=== PATIENT | male | born 1950 | race African-American/Black ===

== ENCOUNTER 2018-11-29 16:08 | Emergency (ER) | payer OTHER ==
[~2018-11-29] VITALS: Ht 190.5 cm; Wt 77.1 kg
[2018-11-29 16:50] VITALS: BP 150/99
--- NOTE | 2018-11-29 18:09 | RAD ---
CHEST PA LATERAL CLINICAL INDICATION: ER PATIENT. NON PRODUCTIVE COUGH X3 DAYS. Hx HTN. NO PRIORS COMPARISON: None FINDINGS: Heart is normal in size. Lungs are hyperinflated. Patchy opacities seen in the right infrahilar lung. No pneumothorax or pleural effusion. Visualized bony thorax within normal limits. IMPRESSION: Patchy opacity in the right infrahilar lung suggests infection. Electronically signed by: Raj Solis DO (11/29/2018 6:06 PM) [employer]
[2018-11-29] MEDS ORDERED: ALBU2.5V8 INH (18:17)
[2018-11-29] MEDS ORDERED: GUAI118L3 PO (18:17)
[2018-11-29] MEDS ORDERED: PRED50TA PO (18:17)
[2018-11-29] MEDS ORDERED: AZIT250T PO (18:17)
--- NOTE | 2018-11-29 18:19 | PHYS DOC ---
Past Medical History Past Medical History: Hypertension Additional Past Medical Histor: "something with my stomach" (MARGARITO HAWKMICHAEL Beverly APRN) Past Surgical History: Other Additional Past Surgical Histo: back (TAYLOR HAWKSHYLA Beverly APRN) Alcohol Use: Occasionally Drug Use: None (TAYLOR HAWKSHYLA Beverly APRN) Adult General Chief Complaint Chief Complaint: COUGH HPI HPI Patient is a 68 year old male who presents with a productive cough 5 days. The patient states that he has had some shortness of air as well. He denies fever or body aches. He denies shortness of breath. He has tried over-the- counter medications with little relief. He also has nasal congestion and sinus drainage. (JUAN RAMONRAEANNTAYLORJEROMYSHYLA Beverly APRN) Review of Systems Review of Systems Constitutional: Denies fever or chills [] Eyes: Denies change in visual acuity, redness, or eye pain [] HENT: See history of present illness Respiratory: See history of present illness Cardiovascular: No additional information not addressed in HPI [] GI: Denies abdominal pain, nausea, vomiting, bloody stools or diarrhea [] : Denies dysuria or hematuria [] Musculoskeletal: Denies back pain or joint pain [] Integument: Denies rash or skin lesions [] Neurologic: Denies headache, focal weakness or sensory changes [] Endocrine: Denies polyuria or polydipsia [] All other systems were reviewed and found to be within normal limits, except as documented in this note. (MARGARITO HAWKMICHAEL Beverly APRN) Allergies Allergies Allergies Coded Allergies Type Severity Reaction Last Updated Verified No Known Allergies Allergy Unknown 11/29/18 Yes (FRANCHESKA HARRIS MD) Physical Exam Physical Exam Constitutional: Well developed, well nourished, no acute distress, non-toxic appearance. [] HENT: Normocephalic, atraumatic, bilateral tympanic membranes normal, oropharynx moist, no oral exudates, bilateral nares are erythematous, drainage noted to back of throat Eyes: PERRLA, EOMI, conjunctiva normal, no discharge. [] Neck: Normal range of motion, no tenderness, supple, no stridor. [] Cardiovascular:Heart rate regular rhythm, no murmur [] Lungs & Thorax: Bilateral breath sounds clear to auscultation with a harsh cough noted[] Abdomen: Bowel sounds normal, soft, no tenderness, no masses, no pulsatile masses. [] Skin: Warm, dry, no erythema, no rash. [] Back: No tenderness, no CVA tenderness. [] Extremities: No tenderness, no cyanosis, no clubbing, ROM intact, no edema. [] Neurologic: Alert and oriented X 3, normal motor function, normal sensory function, no focal deficits noted. [] Psychologic: Affect normal, judgement normal, mood normal. [] (JEROMY HAWK APRN) Current Patient Data Vital Signs Vital Signs Date Time Temp Pulse Resp B/P (MAP) Pulse Ox O2 Delivery O2 Flow Rate FiO2 11/29/18 16:50 99.1 91 18 150/99 (116) 97 Room Air 99.1 (FRANCHESKA HARRIS MD) EKG EKG [] (JEROMY HAWK APRN) Radiology/Procedures Radiology/Procedures []Signed PATIENT: JAIR SIMENTAL ACCOUNT: [id number] : 1950 LOCATION: ER AGE: 68 SEX: M EXAM STATUS: REG ER ORD. PHYSICIAN: PERCY LICONA APRN REASON: cough PROCEDURE: CHEST PA & LATERAL CHEST PA LATERAL CLINICAL INDICATION: ER PATIENT. NON PRODUCTIVE COUGH X3 DAYS. Hx HTN. NO PRIORS COMPARISON: None FINDINGS: Heart is normal in size. Lungs are hyperinflated. Patchy opacities seen in the right infrahilar lung. No pneumothorax or pleural effusion. Visualized bony thorax within normal limits. IMPRESSION: Patchy opacity in the right infrahilar lung suggests infection. Electronically signed by: Raj Solis DO (11/29/2018 6:06 PM) [facility] DICTATED and SIGNED BY: RAJ SOLIS DO DATE: 11/29/181804 (JEROMY HAWK APRN) Course & Med Decision Making Course & Med Decision Making Pertinent Labs and Imaging studies reviewed. (See chart for details) [] (JEROMY HAWK APRN) Course & Med Decision Making Staff Physician Addendum: I was working in the ER during the course of this patient's visit. I was available for consultation as needed, but I was not directly involved in the care of this patient. (FRANCHESKA HARRIS MD) Dragon Disclaimer Dragon Disclaimer This electronic medical record was generated, in whole or in part, using a voice recognition dictation system. (JEROMY HAWK APRN) Departure Departure Impression: Primary Impression: Pneumonia Disposition: 01 HOME, SELF-CARE Condition: STABLE Referrals: CARLOS BATISTA (PCP) Patient Instructions: Pneumonia, Adult Additional Instructions: Take the medications as directed. Follow-up with your primary care provider in 4 days if not improving or return to the emergency department if worsening. Scripts Guaifenesin/D-Methorphan Hb/Pe (ROBITUSSIN COUGH-COLD CF LIQ) 118 Ml Liquid 118 ML PO BID for cough, #120 LIQUID Prov: JEROMY HAWK APRN 11/29/18 Prednisone (PREDNISONE) 50 Mg Tablet 1 TAB PO DAILY for pneumonia, #5 TAB Prov: JEROMY HAWK APRN 11/29/18 Albuterol Sulfate (Proair Hfa) 8.5 Gm Hfa.aer.ad 1 PUFF INH PRN Q6HRS PRN for SHORTNESS OF BREATH, #1 INHALER Prov: JEROMY HAWK APRN 11/29/18 Azithromycin (ZITHROMAX) 250 Mg Tablet 1 PKG PO UD for pneumonia, #1 PKG Prov: JEROMY HAWK APRN 11/29/18 JEROMY HAWK APRN Nov 29, 2018 18:19 FRANCHESKA HARRIS MD Nov 29, 2018 21:51
== END 2018-11-29 18:30 | disposition home or self-care (01) ==
LOC: ER 16:08
DX: J18.9 Pneumonia, unspecified organism (principal); I10 Essential (primary) hypertension
CPT/HCPCS: 71046; 99283

== ENCOUNTER 2020-06-30 15:05 | Emergency (ER) | payer MEDICARE, OTHER ==
[~2020-06-30] VITALS: Ht 190.5 cm; Wt 77.2 kg
[~2020-06-30 15:05] MED LIST: ALBU2.5V8 INH; AZIT250T PO; GUAI118L3 PO; PRED50TA PO
--- NOTE | 2020-06-30 15:29 | PHYS DOC ---
Past Medical History Past Medical History: Hypertension Additional Past Medical Histor: "something with my stomach" Past Surgical History: Other Additional Past Surgical Histo: back Smoking Status: Never Smoker Alcohol Use: Occasionally Drug Use: None General Adult EDM: Chief Complaint: ABDOMINAL PAIN HPI: HPI: The history was obtained from the patient. Patient is a 69-year-old male with no reported PMH who presents with a chief complaint of abdominal pain. Patient states he is a constant abdominal pain for the past 4 days. He states the pain started suddenly. He states pain is aching and burning in nature. He has tried Pepto-Bismol with no relief. He states that nothing seems to exacerbate his symptoms. He denies nausea or vomiting. Denies urinary symptoms. Denies changes to stool caliber or consistency. States he has a history of colonoscopy that was normal to his knowledge. States he has a history of stomach issue but does not know what and cannot elaborate on this. Denies any daily alcohol usage. Denies tobacco or drug use. Denies any chest pain or shortness of breath. Review of Systems: Review of Systems: Constitutional: Denies fever or chills. [] Eyes: Denies change in visual acuity. [] HENT: Denies nasal congestion or sore throat. [] Respiratory: Denies cough or shortness of breath. [] Cardiovascular: Denies chest pain or edema. [] GI: Denies abdominal pain, nausea, vomiting, bloody stools or diarrhea. [] : Denies dysuria. [] Musculoskeletal: Denies back pain or joint pain. [] Integument: Denies rash. [] Neurologic: Denies headache, focal weakness or sensory changes. [] Endocrine: Denies polyuria or polydipsia. [] Lymphatic: Denies swollen glands. [] Psychiatric: Denies depression or anxiety. [] Heart Score: Risk Factors: Risk Factors: DM, Current or recent (<one month) smoker, HTN, HLP, family history of CAD, obesity. Risk Scores: Score 0 - 3: 2.5% MACE over next 6 weeks - Discharge Home Score 4 - 6: 20.3% MACE over next 6 weeks - Admit for Clinical Observation Score 7 - 10: 72.7% MACE over next 6 weeks - Early Invasive Strategies Allergies: Allergies: Allergies Coded Allergies Type Severity Reaction Last Updated Verified No Known Allergies Allergy Unknown 11/29/18 Yes Physical Exam: PE: Constitutional: Well developed, well nourished, no acute distress, non-toxic appearance. [] HENT: Normocephalic, atraumatic, bilateral external ears normal, oropharynx mo ist, no oral exudates, nose normal. [] Eyes: PERRLA, EOMI, conjunctiva normal, no discharge. [] Neck: Normal range of motion, no tenderness, supple, no stridor. [] Cardiovascular:Heart rate regular rhythm, no murmur [] Lungs & Thorax: Bilateral breath sounds clear to auscultation [] Abdomen: Bowel sounds normal, soft, no tenderness, no masses, no pulsatile masses. [] Skin: Warm, dry, no erythema, no rash. [] Back: No tenderness, no CVA tenderness. [] Extremities: No tenderness, no cyanosis, no clubbing, ROM intact, no edema. [] Neurologic: Alert and oriented X 3, normal motor function, normal sensory function, no focal deficits noted. [] Psychologic: Affect normal, judgement normal, mood normal. [] Current Patient Data: Labs: Laboratory Tests Test 06/30/20 15:30 White Blood Count 4.2 x10^3/uL Red Blood Count 4.63 x10^6/uL Hemoglobin 13.9 g/dL Hematocrit 41.5 % Mean Corpuscular Volume 90 fL Mean Corpuscular Hemoglobin 30 pg Mean Corpuscular Hemoglobin Concent 34 g/dL Red Cell Distribution Width 13.2 % Platelet Count 111 x10^3/uL Neutrophils (%) (Auto) 42 % Lymphocytes (%) (Auto) 37 % Monocytes (%) (Auto) 20 % Eosinophils (%) (Auto) 0 % Basophils (%) (Auto) 1 % Neutrophils # (Auto) 1.8 x10^3/uL Lymphocytes # (Auto) 1.6 x10^3/uL Monocytes # (Auto) 0.8 x10^3/uL Eosinophils # (Auto) 0.0 x10^3/uL Basophils # (Auto) 0.0 x10^3/uL Platelet Estimate Pending Sodium Level 133 mmol/L Potassium Level 3.8 mmol/L Chloride Level 99 mmol/L Carbon Dioxide Level 28 mmol/L Anion Gap 6 Blood Urea Nitrogen 11 mg/dL Creatinine 1.4 mg/dL Estimated GFR (Cockcroft-Gault) 60.6 BUN/Creatinine Ratio 8 Glucose Level 137 mg/dL Calcium Level 8.5 mg/dL Total Bilirubin 0.9 mg/dL Aspartate Amino Transf (AST/SGOT) 18 U/L Alanine Aminotransferase (ALT/SGPT) 14 U/L Alkaline Phosphatase 47 U/L Total Protein 7.6 g/dL Albumin 3.6 g/dL Albumin/Globulin Ratio 0.9 Lipase 115 U/L Current Medications Medications (Trade) Dose Ordered Sig/Catia Route PRN Reason Start Time Stop Time Status Last Admin Dose Admin Acetaminophen (Tylenol) 1,000 mg 1X ONCE PO 06/30/20 16:00 06/30/20 16:01 DC 06/30/20 16:15 Iohexol (Omnipaque 300 Mg/ml) 75 ml 1X ONCE IV 06/30/20 16:30 06/30/20 16:31 DC 06/30/20 16:40 Sodium Chloride 1,000 ml @ 1,000 mls/hr 1X ONCE IV 06/30/20 16:30 06/30/20 17:29 06/30/20 16:41 Info (CONTRAST GIVEN -- Rx MONITORING) 1 each PRN DAILY PRN MC SEE COMMENTS 06/30/20 16:30 07/02/20 16:29 Morphine Sulfate (Morphine Sulfate) 4 mg 1X ONCE IV 06/30/20 16:30 06/30/20 16:31 DC 06/30/20 16:42 Famotidine (Pepcid Vial) 20 mg 1X ONCE IVP 06/30/20 16:30 06/30/20 16:31 DC 06/30/20 16:41 Pantoprazole Sodium (PROTONIX VIAL for IV PUSH) 40 mg 1X ONCE IVP 06/30/20 16:30 06/30/20 16:31 DC 06/30/20 16:41 Vital Signs: Vital Signs Date Time Temp Pulse Resp B/P (MAP) Pulse Ox O2 Delivery O2 Flow Rate FiO2 06/30/20 16:42 18 94 Room Air 06/30/20 15:20 102.9 79 19 141/89 (106) 93 Room Air 102.9 EKG: EKG: EKG consistent with normal sinus rhythm. Ventricular rate of 77 bpm. [place] noted to be right. Flipped T wave in lead III. As well as flipped T wave in lead V3. No acute ischemic changes appreciated. [] Radiology/Procedures: Radiology/Procedures: [facility] [address] [place] [address] IMAGING REPORT Signed PATIENT: JAIR SIMENTAL ACCOUNT: [id number] : 1950 LOCATION: ER AGE: 69 SEX: M EXAM STATUS: REG ER ORD. PHYSICIAN: BRADLY CAMARA DO REASON: abdominal pain PROCEDURE: CT ABD PELV W/ IV CONTRST ONLY Exam: CT of abdomen and pelvis with contrast INDICATION: Abdominal pain TECHNIQUE: Sequential axial images through the abdomen and pelvis obtained following the administration of 75 mL of Omni 300 IV contrast. Sagittal and coronal reformatted images were reconstructed from the axial data and reviewed. Comparisons: None FINDINGS: Heart size is normal. No pericardial effusion. Strandy opacities at dependent portion the lungs. 4 mm nodule at the right lower lobe series 2 image 5. No pleural effusion. Liver, spleen, pancreas, gallbladder and adrenals are unremarkable. Kidneys demonstrate symmetric enhancement. No perinephric inflammation or hydronephrosis. 2 simple cyst noted in the left kidney. No ureteral calculi are identified. Bladder is partially distended and appears thin-walled. Prostate is not enlarged. Large and small bowel are unremarkable. Appendix is normal. No free intra-abdominal air or fluid. No obstruction. Abdominal aorta has a normal course and caliber. Abdominal vasculature is patent. No enlarged intra-abdominal lymph nodes are identified. No suspicious osseous lesions or acute fractures. IMPRESSION: No acute process identified within the abdomen or pelvis. Exposure: One or more of the following in the visualized dose reduction techniques were utilized for this examination: 1. Automated exposure control 2. Adjustment of the MA and/or KV according to patient size 3. Use of iterative of reconstructive technique Electronically signed by: Kush Roldan MD (06/30/2020 4:51 PM) [id number] DICTATED and SIGNED BY: KUSH ROLDAN MD DATE: 06/30/20 165 [] Course & Med Decision Making: Course & Med Decision Making Pertinent Labs and Imaging studies reviewed. (See chart for details) [] Patient is a well-appearing 69-year-old male who presents with chief complaint of abdominal discomfort over the past 4 days associated with loose stool. He tells me he was tested for COVID yesterday by his primary care physician. Distal vital signs notable for mild temperature. Otherwise unremarkable. Basic labs were obtained were grossly unremarkable. CT imaging reveals no acute surgical abnormality. He was notified of the incidental finding of lung nodules and instructed to follow-up with his primary care physician. Urinalysis reveals no evidence of infection. Repeat examination his abdomen remains benign. He has tolerated p.o. His vital signs remained stable. I do feel he is overall appropriate for discharge home with close outpatient monitoring. I discussed the possibility of hospitalization for close monitoring however the patient is requesting discharge home and overall I do feel this is reasonable. Utilizing shared decision making patient will be discharged home. He was instructed to quarantine until results of COVID testing return. Return precautions were discussed and understood. Patient is agreeable to this plan will be discharged home with close follow-up. Dragon Disclaimer: Dragon Disclaimer: This electronic medical record was generated, in whole or in part, using a voice recognition dictation system. Departure Departure Impression: Primary Impression: Abdominal pain Qualified Codes: R10.84 - Generalized abdominal pain Additional Impression: Lung nodule Disposition: HOME, SELF-CARE Condition: STABLE Referrals: CARLOS BATISTA (PCP) Patient Instructions: Abdominal Pain Additional Instructions: Discharge Abdominal Pain Re-Check Precautions: I'm unsure of the specific cause of your abdominal pain. However, at this point I feel that you are low risk for a life threatening emergency and that discharge from the Emergency Department is safe. There is a very small possibility that you are just too early in your clinical course for our physical exam/labs/imaging to ascertain whether or not you have an emergent condition that could potentially cause permanent disability or be life threatening. As such, it is very important that you follow up with your primary doctor or return to the Emergency Department in 12-24 hours for re-assessment and further evaluation if clinically indicated. If you develop new or worsening symptoms then you should return to the Emergency Department immediately. Home Care Instructions: Abdominal Pain Many things may cause abdominal pain. Your ER visit might not show the exact reason you are having pain. In some cases, additional time is needed to determine if the cause is serious. Therefore you may be told to go home and watch for any changes or worsening in your condition. Before that, we may not know if you need more testing, or if hospitalization or surgery is necessary. If its not something serious, the pain may go away without treatment or get better with simple things like avoiding certain foods or medications. In the ER, your doctor asks you questions, examines you and in some cases, may order tests. These help doctors decide if the pain is from something serious. Tests are not always done and may not provide a definite answer. There can still be a problem, even with normal test results. Abdominal pain may be caused by something serious (like appendicitis), which is not obvious right away. Because of this, another checkup is needed to make sure you are OK. It is VERY IMPORTANT to follow up for a repeat exam, especially if you have any symptoms that are not going away or are getting worse. We recommend that you RETURN TO THE EMERGENCY ROOM IN 8-12 HOURS to be rechecked. If you cannot, you may follow up with your primary care doctor or clinic. It is important that you follow all of the instructions below. RETURN TO THE EMERGENCY ROOM IMMEDIATELY IF: The pain does not go away or gets worse. You have a fever. You keep throwing up and cannot keep anything down. You pass bloody or black stools. You develop new symptoms. HOME CARE INSTRUCTIONS Come back to the ER (or see your doctor) in 8-12 hours. DO NOT take laxatives unless directed by your doctor. Avoid the use of alcohol Take pain medicine only as directed by your doctor. Only take [id number] or prescription medicine as directed by your doctor. Try a clear liquid diet (broth, tea, jello, water) for the next 12-24 hours. Slowly move to a bland diet as tolerated. Do not eat greasy, fatty or spicy foods. Once you start getting better, go back to a normal, healthy diet, slowly over a few days. DISCHARGE PT INSTRUCTIONS: YOU HAVE BEEN EVALUATED FOR ABDOMINAL PAIN. HOWEVER, WE ARE UNABLE TO PROVIDE A DEFINITE CAUSE OF YOUR SYMPTOMS. EVEN THOUGH YOUR TESTS MAY HAVE BEEN NORMAL, YOU STILL COULD HAVE A SERIOUS CAUSE FOR YOUR ABDOMINAL PAIN, INCLUDING APPENDICITIS. THE BEST TEST TO DETERMINE IF YOU HAVE A SERIOUS CAUSE IS RE-EXAMINATION OVER TIME. WE USED TO ADMIT PATIENTS TO THE HOSPITAL FOR THIS, BUT CAN NOW ALLOW YOU TO GO HOME, & RETURN TO OUR ER THE NEXT DAY FOR RE- EXAMINATION. THUS, WE WOULD LIKE YOU TO RETURN TO OUR ER TOMORROW FOR YOUR RE- EVALUATION. (IF YOUR SYMPTOMS HAVE GONE AWAY, THEN YOU DO NOT NEED TO RETURN.) IF YOUR SYMPTOMS GET WORSE BETWEEN NOW & THEN, YOU SHOULD RETURN IMMEDIATELY & NOT WAIT UNTIL TOMORROW. SYMPTOMS TO LOOK FOR WORSENING PAIN, HIGH FEVER, PERSISTENT VOMITING [NOT CONTROLLED BY MEDICINE], AND/OR OVERALL WORSENING OF YOUR CONDITION. You have been tested for or diagnosed with COVID-19. It is an infection caused by a new type of coronavirus. COVID-19 will cause cold-like or mild flu symptoms in most. It can cause more severe symptoms like problems breathing in some. There is no treatment for COVID-19. The body will clear the infection over time. Self-care will help to ease discomfort. Steps to Take: Self-Care Rest as needed. Healthy habits may help you feel better. Steps include: Choose healthy foods including fruits and vegetables. Drink water throughout the day. Get plenty of sleep each night. If you smoke, try to quit. It may ease breathing. Avoid alcohol. Keep Others Healthy The virus can spread to others. Droplets are released every time you sneeze or cough. The droplets can get into the mouth, nose, or eyes of people near you and lead to infection. To lower the chances of spreading COVID-19 to others: Stay at home until your doctor has said it is safe to leave. If you tested positive this will mean staying isolated until both of the following are true: At least 7 days have passed since the start of illness. You are free of fever for at least 72 hours without the use of medicine. During this time: - Avoid public areas, events, or transportation. Do not return to work or school until your doctor has said it is safe to do so. - Call ahead if you need to go to a medical center. Let them know you may have COVID-19. It will help them guide you where to go. They may also ask you to wear a facemask when you come to the office. - If you call for emergency medical services, let them know you may have COVID- 19. While at home: - Try to avoid close contact with others. Stay about 6 feet away. - If possible, spend most of your time in a separate room from others. - Use a face mask if you will be in close contact with others such as sharing a room or vehicle. - Have someone wipe down common surfaces in the home. Use household data software engineer every day on areas like doorknobs, counters, or sinks. - Cough or sneeze into a tissue. Throw the tissue away right after use. If a tissue is not available, cough or sneeze into your elbow. - Wash your hands often. Wash them after sneezing or coughing. Use soap and water and wash for at least 20 seconds. Alcohol based hand chicken cleaner can be used if soap and water is not available. - Do not prepare food for others. Avoid sharing personal items like forks, spoons, or toothbrushes. - Avoid close contact with pets while you are sick. There is no evidence of the virus passing to pets. This is a safety step until more is known about this virus. Isolation can be frustrating. Social interaction can help. Keep in touch with friends and family through phone and tech options. You can still interact with others in your home, just keep a safe distance of about 6 feet. Follow-up: Your doctors office will check in with you to see if there are any changes in your health. You may be asked to keep track of symptoms to share with them. They will also let you know when you are clear to be in public again. Problems to Look Out For: Contact your doctor if your recovery is not going as you expect. Get emergency care if you have problems such as: - Trouble breathing - Nonstop chest pain or pressure - Changes in awareness, confusion, or problems waking - Lips or face have bluish color - Worsening of symptoms If you think you have an emergency, call for emergency medical services right away. As taken from [facility] Health Scripts Ondansetron Hcl (ZOFRAN) 4 Mg Tablet 4 MG PO PRN TID PRN for NAUSEA, #15 nausea/vomiting Prov: BRADLY CAMARA DO 06/30/20 Famotidine (PEPCID) 20 Mg Tablet 20 MG PO BID for 7 Days, #14 TAB Prov: BRADLY CAMARA DO 06/30/20 Dicyclomine Hcl (DICYCLOMINE HCL) 20 Mg Tablet 1 TAB PO QID for 7 Days, #28 TAB 1 Refill Prov: BRADLY CAMARA DO 06/30/20 Justicifation of Admission Dx: Justifications for Admission: Justification of Admission Dx: N/A BRADLY CAMARA DO Jun 30, 2020 15:29
[2020-06-30] MEDS ORDERED: ACETAMINOPHEN 500 MG TABLET PO ONE (16:00)
[2020-06-30 16:05] LABS: BASO % 1 % (0-3); EOS % 0 % (0-3); HEMATOCRIT 41.5 % (39.0-53.0); HEMOGLOBIN 13.9 g/dL (13.0-17.5); LYMPH # 1.6 x10^3/uL (1.0-4.8); LYMPH % 37 % (24-48); MEAN CORPUSCULAR HEMOGLOBIN 30 pg (25-35); MEAN CORPUSCULAR HGB CONC 34 g/dL (31-37); MEAN CORPUSCULAR VOLUME 90 fL (79-100); MONO # 0.8 x10^3/uL (0.0-1.1); MONO % 20 % (0-9); NEUT # 1.8 x10^3/uL (1.8-7.7); NEUT % 42 % (31-73); PLATELET COUNT 111 x10^3/uL (140-400); RED BLOOD COUNT 4.63 x10^6/uL (4.30-5.70); RED CELL DISTRIBUTION WIDTH 13.2 % (11.5-14.5); WHITE BLOOD COUNT 4.2 x10^3/uL (4.0-11.0)
[2020-06-30 16:11] LABS: CALCIUM 8.5 mg/dL (8.5-10.1); CREATININE 1.4 mg/dL (0.7-1.3); GFR 60.6; POTASSIUM 3.8 mmol/L (3.5-5.1)
[2020-06-30 16:17] LABS: ALBUMIN 3.6 g/dL (3.4-5.0); ALBUMIN/GLOBULIN RATIO 0.9 (1.0-1.7); TOTAL BILIRUBIN 0.9 mg/dL (0.2-1.0); TOTAL PROTEIN 7.6 g/dL (6.4-8.2)
[2020-06-30] MEDS ORDERED: FAMOTIDINE 20 MG/2 ML VIAL IVP ONE (16:30)
[2020-06-30] MEDS ORDERED: IV NORMAL SALINE 1000ML BAG 1,000 ML IV ONE (16:30)
[2020-06-30] MEDS ORDERED: CONTRAST GIVEN. MC PRN (16:30)
[2020-06-30] MEDS ORDERED: IOHEXOL 300 MG/ML 100ML VIAL. IV ONE (16:30)
[2020-06-30] MEDS ORDERED: PANTOPRAZOLE IV PUSH 40 MG VIAL. IVP ONE (16:30)
[2020-06-30] MEDS ORDERED: MORPHINE SULFATE 4 MG/ML VIAL. IV ONE (16:30)
--- NOTE | 2020-06-30 16:54 | RAD ---
Exam: CT of abdomen and pelvis with contrast INDICATION: Abdominal pain TECHNIQUE: Sequential axial images through the abdomen and pelvis obtained following the administration of 75 mL of Omni 300 IV contrast. Sagittal and coronal reformatted images were reconstructed from the axial data and reviewed. Comparisons: None FINDINGS: Heart size is normal. No pericardial effusion. Strandy opacities at dependent portion the lungs. 4 mm nodule at the right lower lobe series 2 image 5. No pleural effusion. Liver, spleen, pancreas, gallbladder and adrenals are unremarkable. Kidneys demonstrate symmetric enhancement. No perinephric inflammation or hydronephrosis. 2 simple cyst noted in the left kidney. No ureteral calculi are identified. Bladder is partially distended and appears thin-walled. Prostate is not enlarged. Large and small bowel are unremarkable. Appendix is normal. No free intra-abdominal air or fluid. No obstruction. Abdominal aorta has a normal course and caliber. Abdominal vasculature is patent. No enlarged intra-abdominal lymph nodes are identified. No suspicious osseous lesions or acute fractures. IMPRESSION: No acute process identified within the abdomen or pelvis. Exposure: One or more of the following in the visualized dose reduction techniques were utilized for this examination: 1. Automated exposure control 2. Adjustment of the MA and/or KV according to patient size 3. Use of iterative of reconstructive technique Electronically signed by: Kush Horan MD (06/30/2020 4:51 PM) [id number]
[2020-06-30 17:19] LABS: % BANDS 4 % (0-9); % LYMPHS 38 % (24-48); % METAS 1 % (0-0); % MONOS 21 % (0-10); % SEGS 36 % (35-66)
[2020-06-30 17:20] LABS: PLT ESTIMATE DECREASED (ADEQUATE)
[2020-06-30] MEDS ORDERED: DICY20TA3 PO (17:23)
[2020-06-30] MEDS ORDERED: FAMO-63 PO (17:23)
[2020-06-30] MEDS ORDERED: ONDA4TAB7 PO (17:23)
[2020-06-30 17:28] LABS: BILIRUBIN,URINE NEGATIVE (NEG); CLARITY,URINE CLEAR; COLOR,URINE YELLOW; NITRITE,URINE NEGATIVE (NEG); PH,URINE 7.5 (<5.0-8.0); PROTEIN,URINE NEGATIVE (NEG-TRACE)
[2020-06-30 17:31] LABS: SQUAMOUS EPITHELIAL CELL,UR OCC /LPF
[2020-06-30 17:32] LABS: BACTERIA,URINE 0 /HPF (0-FEW); RBC,URINE 0 /HPF (0-2); WBC,URINE 0 /HPF (0-4)
--- NOTE | 2020-06-30 17:51 | RAD ---
Chest AP portable 06/30/2020. Reason for exam: Epigastric pain. Comparison is made with a study of 11/29/2018. No infiltrate or effusion is seen. Heart size and pulmonary vascularity appear normal. No free air is visible beneath the diaphragm. IMPRESSION: No acute cardiopulmonary disease. Electronically signed by: Rigo Lilly Jr., MD (06/30/2020 5:48 PM) [id number]
[2020-06-30 17:59] VITALS: BP 128/77
--- NOTE | 2020-07-02 10:33 | EKG ---
[facility] [address] [place] [address] Test Date: 2020-06-30 Test Time: 15:35:59 Pat Name: JAIR SIMENTAL Department: Room: Gender: M Club Former: : 1950 Requested By: BRADLY CAMARA Order Number: [id number] Reading MD: Measurements Intervals Nikolai Rate: 77 P: 42 IN: 190 QRS: 98 QRSD: 86 T: 28 QT: 350 QTc: 398 Interpretive Statements SINUS RHYTHM LEFT ATRIAL ABNORMALITY R-S TRANSITION ZONE IN V LEADS DISPLACED TO THE LEFT ABNORMAL ECG RI6.02 No previous ECG available for comparison
== END 2020-06-30 18:25 | disposition home or self-care (01) ==
LOC: ER 15:05
DX: R10.84 Generalized abdominal pain (principal); R91.1 Solitary pulmonary nodule; R20.8 Other disturbances of skin sensation; R19.7 Diarrhea, unspecified; I10 Essential (primary) hypertension; Z98.890 Other specified postprocedural states
CPT/HCPCS: 36415; 71045; 74177; 80053; 81001; 83690; 85007; 85025; 96361; 96374; 96375; 99285; C9113; J2270; J3490; J7030; Q9967; 93005

== ENCOUNTER 2020-09-24 12:49 | Emergency (ER) | payer MEDICARE ==
[~2020-09-24] VITALS: Ht 190.5 cm; Wt 75.0 kg
[~2020-09-24 12:49] MED LIST changes: +AMLO5TAB4 PO; +ASPI-630 PO; +ATOR20TA58 PO; +DEXA4TAB63 PO; +DICY20TA3 PO; +FAMO-63 PO; +LINE600T12 PO; +LISI2.5T PO; +ONDA4TAB7 PO
[2020-09-24 13:00] VITALS: BP 129/90
[2020-09-24] MEDS ORDERED: KETOROLAC 30 MG/ML VIAL. IM ONE (13:45)
[2020-09-24 14:02] LABS: BILIRUBIN,URINE NEGATIVE (NEG); CLARITY,URINE CLEAR; COLOR,URINE YELLOW; NITRITE,URINE NEGATIVE (NEG); PROTEIN,URINE NEGATIVE (NEG-TRACE)
[2020-09-24 14:13] LABS: BACTERIA,URINE 0 /HPF (0-FEW); WBC,URINE 0 /HPF (0-4)
--- NOTE | 2020-09-24 14:44 | RAD ---
EXAMINATION: CT LUMBAR SPINE WO, 09/24/2020 1:50 PM CLINICAL INDICATION: Acute pain COMPARISON: CT abdomen pelvis 06/30/2020 TECHNIQUE: Helical CT imaging performed of the lumbar spine without the use of intravenous contrast. Sagittal and coronal reformats were obtained. One or more of the following individualized dose reduction techniques were utilized for this examinat ion: 1. Automated exposure control 2. Adjustment of the mA and/or kV according to patient size 3. Use of iterative reconstruction technique. FINDINGS: There is sacralization of L5 with a reminder disc at L5-S1. There is no acute fracture. 3 m m anterolisthesis of L2 on L3 is unchanged. There is mild/moderate space narrowing at L2-L3 and mild disc space narrowing at T12-L1 and L1-L2. There is a Schmorl's node in the superior plate of bowel to . There is severe facet arthrosis throughout the lumbar spine, greatest at L4-L5 and L5-S1. There is fusion of the facets at L5-S1. There is foraminal narrowing at T12-L1, L1-L2, and L2-L3 bilaterally. There is a broad-based disc bulge with severe canal narrowing at L2-L3. Mild calcified atherosclerosis in the aorta. IMPRESSION: 1. No acute osseous abnormality. 2. Transitional anatomy at the lumbosacral junction. 3. Mild degenerative disc disease, greatest at L2-L3 where there is grade 1 anterolisthesis, a disc b ulge, and severe canal narrowing. There is foraminal narrowing in the upper lumbar spine. 4. Severe facet arthrosis, greatest in the lower lumbar spine. Electronically signed by: Laura Mercedes MD (09/24/2020 2:41 PM) [id number]
[2020-09-24] MEDS ORDERED: MELO7.5T29 PO (15:42)
--- NOTE | 2020-09-24 15:42 | PHYS DOC ---
Past Medical History Past Medical History: Hypertension Additional Past Medical Histor: "something with my stomach" Past Surgical History: Other Additional Past Surgical Histo: back Smoking Status: Never Smoker Alcohol Use: Occasionally Drug Use: None General Adult EDM: Chief Complaint: BACK PAIN - NO INJURY HPI: HPI: Patient is a 70 year old male presents to the emergency department complaining of nontraumatic low back pain that started this past Thursday before he went to bed. Patient states that he woke up with the same pain and was concerned that maybe he needed to be seen at his doctor's office. Patient reports a 10/10 pain on a 1-10 pain scale denies numbness or tingling down his extremities denies any loss of bowel or bladder, denies any extremity swelling. Patient denies any urinary problems, denies any burning with urination, denies any penile discharge. Patient states he went to see his doctor today and was told that he could not get in until October 03 and they recommended to him that he come straight to the emergency department for an evaluation. Patient denies any recent fever or chills, shortness of breath, chest pain, nasal congestion, or rashes of his skin. Review of Systems: Review of Systems: 14 body systems of review of systems have been reviewed. See HPI for pertinent positives and negative responses, otherwise all other systems are negative, nonpertinent or noncontributory. Heart Score: Risk Factors: Risk Factors: DM, Current or recent (<one month) smoker, HTN, HLP, family history of CAD, obesity. Risk Scores: Score 0 - 3: 2.5% MACE over next 6 weeks - Discharge Home Score 4 - 6: 20.3% MACE over next 6 weeks - Admit for Clinical Observation Score 7 - 10: 72.7% MACE over next 6 weeks - Early Invasive Strategies Current Medications: Current Medications Medications (Trade) Dose Ordered Sig/[facility] Start Time Stop Time Status Last Admin Dose Admin Ketorolac Tromethamine (Toradol 30mg Vial) 30 mg 1X ONCE 09/24/20 13:45 09/24/20 13:48 DC 09/24/20 14:06 30 MG Allergies: Allergies: Allergies Coded Allergies Type Severity Reaction Last Updated Verified No Known Allergies Allergy Unknown 11/29/18 Yes Physical Exam: PE: Constitutional: Well developed, well nourished, no acute distress, non-toxic appearance. [] HENT: Normocephalic, atraumatic, bilateral external ears normal, oropharynx moist, no oral exudates, nose normal. [] Eyes: PERRLA, EOMI, conjunctiva normal, no discharge. [] Neck: Normal range of motion, no tenderness, supple, no stridor. [] Cardiovascular:Heart rate regular rhythm, no murmur [] Lungs & Thorax: Bilateral breath sounds clear to auscultation [] Abdomen: Bowel sounds normal, soft, no tenderness, no masses, no pulsatile masses. [] Skin: Warm, dry, no erythema, no rash. [] Back: No CVA tenderness, left and right lumbar area pain to palpation without radiation down either lower extremity, no midline spinal tenderness pain. No bony crepitus noted, no subcu air noted, no bruising and no ecchymotic areas or erythema noted of the lumbar area or adjacent surface areas. Extremities: No tenderness, no cyanosis, no clubbing, ROM intact, no edema. [] Neurologic: Alert and oriented X 3, normal motor function, normal sensory function, no focal deficits noted. [] Psychologic: Affect normal, judgement normal, mood normal. [] Current Patient Data: Labs: Laboratory Tests Test 09/24/20 13:00 Urine Collection Type Unknown Urine Color Yellow Urine Clarity Clear Urine pH 7.0 (<5.0-8.0) Urine Specific [place] 1.010 (1.000-1.030) Urine Protein Negative mg/dL (NEG-TRACE) Urine Glucose (UA) Negative mg/dL (NEG) Urine Ketones (Stick) Negative mg/dL (NEG) Urine Blood Negative (NEG) Urine Nitrite Negative (NEG) Urine Bilirubin Negative (NEG) Urine Urobilinogen Dipstick 1.0 mg/dL (0.2 mg/dL) Urine Leukocyte Esterase Negative (NEG) Urine RBC 1-2 /HPF (0-2) Urine WBC 0 /HPF (0-4) Urine Bacteria 0 /HPF (0-FEW) Urine Mucus Slight /LPF Vital Signs: Vital Signs Date Time Temp Pulse Resp B/P (MAP) Pulse Ox O2 Delivery O2 Flow Rate FiO2 09/24/20 13:00 98.6 77 18 129/90 (103) 97 Room Air 98.6 EKG: EKG: [] Radiology/Procedures: Radiology/Procedures: SEX: M EXAM STATUS: REG ER ORD. PHYSICIAN: JAIR STONE APRN REASON: ACUTE PAIN PROCEDURE: CT LUMBAR SPINE WO CONTRAST EXAMINATION: CT LUMBAR SPINE WO, 09/24/2020 1:50 PM CLINICAL INDICATION: Acute pain COMPARISON: CT abdomen pelvis 06/30/2020 TECHNIQUE: Helical CT imaging performed of the lumbar spine without the use of intravenous contrast. Sagittal and coronal reformats were obtained. One or more of the following individualized dose reduction techniques were utilized for this examination: 1. Automated exposure control 2. Adjustment of the mA and/or kV according to patient size 3. Use of iterative reconstruction technique. FINDINGS: There is sacralization of L5 with a reminder disc at L5-S1. There is no acute fracture. 3 mm anterolisthesis of L2 on L3 is unchanged. There is mild/moderate space narrowing at L2-L3 and mild disc space narrowing at T12-L1 and L1-L2. There is a Schmorl's node in the superior plate of bowel to. There is severe facet arthrosis throughout the lumbar spine, greatest at L4-L5 and L5- S1. There is fusion of the facets at L5-S1. There is foraminal narrowing at T12- L1, L1-L2, and L2-L3 bilaterally. There is a broad-based disc bulge with severe canal narrowing at L2-L3. Mild calcified atherosclerosis in the aorta. IMPRESSION: 1. No acute osseous abnormality. 2. Transitional anatomy at the lumbosacral junction. 3. Mild degenerative disc disease, greatest at L2-L3 where there is grade 1 anterolisthesis, a disc bulge, and severe canal narrowing. There is foraminal narrowing in the upper lumbar spine. 4. Severe facet arthrosis, greatest in the lower lumbar spine. Electronically signed by: Laura Mercedes MD (09/24/2020 2:41 PM) [id number] DICTATED and SIGNED BY: LAURA MERCEDES MD DATE: 09/24/20 [id number] 0 Course & Med Decision Making: Course & Med Decision Making Pertinent Labs and Imaging studies reviewed. (See chart for details) 70-year-old male vital signs stable presented to the emergency department after his primary care physician could not see him today for low back pain. Patient did not have saddle anesthesia, no midline tenderness, exam was consistent with lumbar go diagnosis however related to patient's age and history of surgery in the past a CT of the LS spine was performed. Read as arthritic changes per house radiologist interpretation. Discussed with patient CT findings, patient states that he feels much better since his injection of 30 mg IM Toradol. Discussed with patient will start on meloxicam 7.5 mg p.o. daily and to keep his appointment on 10/03/2020 with his primary care physician to let him know that I have started him on meloxicam. Patient gave verbal understanding of discharge instructions, return to ER co ncerns, patient had no further questions or concerns, patient discharged home without incident Dragon Disclaimer: Dragon Disclaimer: This electronic medical record was generated, in whole or in part, using a voice recognition dictation system. Departure Departure Impression: Primary Impression: Lumbago Qualified Codes: M54.5 - Low back pain Disposition: 01 DC HOME SELF CARE/HOMELESS Condition: IMPROVED Referrals: CARLOS BATISTA (PCP) Patient Instructions: Back Pain, Adult Additional Instructions: I have started you on a new medication called meloxicam for your back pain that I believe is caused from arthritic changes. Please keep your appointment for October 03 with your primary care doctor and let him know you are now taking meloxicam as he may consider changing to a different medication. Please return to the emergency department for worsening symptoms or other concerns. EMERGENCY DEPARTMENT GENERAL DISCHARGE INSTRUCTIONS Thank you for coming to [facility] Emergency Department (ED) today and trusting us with you care. We trust that you had a positive experience in our Emergency Department. If you wish to speak to the department management, you may call the Director at [phone]. YOUR FOLLOW UP INSTRUCTIONS ARE FOLLOWS: 1. Do you have a private Doctor? If you do not have a private doctor, please ask for a resource list of physicians or clinics that may be able to assist you with follow up care. 2. The Emergency Physicain has interpreted your x-rays. The X-Ray specialist will also review them. If there is a change in the findings, you will be notified in 48 hours when at all possible. 3. A lab test or culture has been done, your results will be reviewed and you will be notified if you need a change in treatment. ADDITIONAL INSTRUCTIONS AND INFORMATION: 1. Your care today has been supervised by a physician who is specially trained in emergency care. Many problems require more than one evaluation for a complete diagnosis and treatment. We recommend that you schedule your follow up appointment as recommended to ensure complete treatment of you illness or injury. If you are unable to obtain follow up care and continue to have a problem, or if your condition worsens, we recommend that you return to the ED. 2. We are not able to safely determine your condition over the phone nor are we able to give sound medical advice over the phone. For these safety reasons, if you call for medical advice we will ask you to come to the ED for further evaluation. 3. If you have any questions regarding these discharge instructions please call the ED at [phone]. SAFETY INFORMATION: In the interest of safety, wellness, and injury prevention; we encourage you to wear your sealbelt, if you smoke; quite smoking, and we encourage family to use a protective helmet for bicycling and other sporting events that present an increased risk for head injury. IF YOUR SYMPTOMS WORSEN OR NEW SYMPTOMS DEVELOP, OR YOU HAVE CONCERNS ABOUT YOUR CONDITION; OR IF YOUR CONDITION WORSENS WHILE YOU ARE WAITING FOR YOUR FOLLOW UP APPOINTMENT; EITHER CONTACT YOUR PRIMARY CARE DOCTOR, THE PHYSICIAN WHOSE NAME AND NUMBER YOU WERE GIVEN, OR RETURN TO THE ED IMMEDIATELY. Scripts Meloxicam (MELOXICAM) 7.5 Mg Tablet 1 TAB PO DAILY for BACK ARTHRITIS PAIN for 30 Days, #30 TAB 0 Refills Prov: JAIR STONE APRN 09/24/20 JAIR STONE APRN Sep 24, 2020 15:42
== END 2020-09-24 15:57 | disposition home or self-care (01) ==
LOC: ER 12:49
DX: M54.5 Low back pain (principal); I10 Essential (primary) hypertension
CPT/HCPCS: 72131; 81001; 96372; 99284; J1885